=== PATIENT | female | born 1965 | race American Indian/Alaskan Native ===

== ENCOUNTER 2025-07-29 15:37 | Emergency (ER) | payer OTHER ==
[~2025-07-29] VITALS: Ht 172.7 cm; Wt 93.9 kg
[2025-07-29] MEDS ORDERED: SYNTHROID125 MCG PO (16:59)
[2025-07-29] MEDS ORDERED: DEXAMETHASONE SODIUM PHOSPHATE 4 MG/ML VIAL IM STA (17:18)
[2025-07-29] MEDS ORDERED: KETOROLAC TROMETHAMINE 30 MG VIAL IM STA (17:18)
[2025-07-29] MEDS ORDERED: KETOROLAC TROMETHAMINE 30 MG VIAL ONE (18:08)
[2025-07-29] MEDS ORDERED: DEXAMETHASONE SODIUM PHOSPHATE 4 MG/ML VIAL ONE (18:08)
[2025-07-29 19:11] LABS: BASO % 0.9 % (0.1-1.2); EOS # 0.77 (0.04-0.54); EOS % 9.4 % (0.7-7.0); LYMPH # 2.31 (1.18-3.74); LYMPH % 28.3 % (19.3-53.1); MEAN PLATELET VOLUME 9.40 fl (9.4-12.4); MONO # 0.46 (0.24-0.82); MONO % 5.6 % (4.7-12.5); NEUT # 4.52 (1.56-6.13); NEUT % 55.6 % (34.0-71.1); RED CELL DISTRIBUTION WIDTH 14.0 % (11.6-14.4)
[2025-07-29 19:12] LABS: URINE APPEARANCE Clear; URINE BILIRRUBIN Negative (NEGATIVE); URINE BLOOD Negative; URINE COLOR Yellow; URINE GLUCOSE Negative (NEGATIVE); URINE KETONE Negative (NEGATIVE); URINE LEUKOCYTE Small; URINE NITRATE Negative; URINE PROTEIN Negative (NEGATIVE); URINE UROBILINOGEN 0.2 E.U./dl
[2025-07-29 19:16] LABS: URINE BACTERIA 107.9 uL (0.0-1933); URINE EPITHELIAL CELLS 13.8 uL (0.0-38.8); URINE RBC 22.4 uL (0.0-20.8); URINE WBC 100.5 uL (0.0-23.2)
[2025-07-29 19:37] LABS: BUN CREA RATIO 15.0 (7.0-25.0); CREATININE SERUM 0.96 mg/dL (0.55-1.02); GFR 59.49; GLUCOSE FASTING 130.0 mg/dL (65-100); OSMOLALITY SERUM 285.0 MOSM/KG (275-295)
[2025-07-29 19:39] LABS: TYPE CELLS SQUAMOUS; URINE CAST 0.00 uL (0.0-1.40); URINE CRYSTALS MODERATE /HPF; URINE MUCUS SCANT
[2025-07-29] MEDS ORDERED: BACTRIM 400-801 EACH PO (21:24)
[2025-07-29] MEDS ORDERED: NAPROXEN500 MG PO (21:24)
== END 2025-07-29 22:57 | disposition home or self-care (01) ==
LOC: ER 15:37
PROVIDERS: General Practice
DX: M54.50 Low back pain, unspecified (principal); N39.0 Urinary tract infection, site not specified; K59.00 Constipation, unspecified; K57.30 Diverticulosis of large intestine without perforation or abscess without bleeding; E03.9 Hypothyroidism, unspecified